=== PATIENT | female | born 1995 | race Two or more races ===

== ENCOUNTER 2020-04-19 01:03 | Inpatient (IN) | payer OTHER ==
[~2020-04-19] VITALS: Ht 170.2 cm; Wt 78.0 kg
[2020-04-19] VITALS (13 sets, daily range): BP systolic 91–119; BP diastolic 50–68
--- NOTE | 2020-04-19 03:10 | NUR ---
NURSE NOTES: Received report from Tawana DUCKWORTH at [facility]. The patient was brought in by 2 online marketing analyst from [facility] ambulance via a gurney.She is alert and oriented x4 and does not seem to be in any acute distress at this time.She was admitted due to acute appendicitis. She is on room air with Resp even and unlabored and the bilateral lung sounds clear on auscultation. She was able to ambulate to the bathroom with a steady gait. She has a Right AC 20g that is patent and asymptomatics. Skin is warm and soft with with capillary refills <3 seconds. The is no evidence of a pressure sore and the skin is clear and intact. The bed in low and locked level and the call light within easy reach with side rails up x2.Will continue to monitor as indicated.
--- NOTE | 2020-04-19 03:30 | NUR ---
NURSE NOTES: All admission orders received from Dr. Moseley and executed as indicated. will continue to monitor
[2020-04-19] MEDS ORDERED: Morphine Sulfate 2mg/ml Inj(IV/IM USE ONLY) IVP PRN ×4 (04:45→12:45)
[2020-04-19] MEDS: D5 1/2NS w/KCl 20mEq 1,000 ML IV SCH ×2 (05:16→15:00)
[2020-04-19 05:26] LABS: BASOPHILS % (AUTO) 0.8 % (0.0-2.0); HEMATOCRIT 36.2 % (37.0-47.0); HEMOGLOBIN 12.4 G/DL (12.0-16.0); LYMPHOCYTES % (AUTO) 5.5 % (20.0-45.0); MEAN CORPUSCULAR VOLUME 85 FL (80-99); MONOCYTES % (AUTO) 9.5 % (1.0-10.0); NEUTROPHILS % (AUTO) 84.1 % (45.0-75.0); PLATELET COUNT 164 K/UL (150-450); RED BLOOD COUNT 4.27 M/UL (4.20-5.40); RED CELL DISTRIBUTION WIDTH 11.7 % (11.6-14.8); WHITE BLOOD COUNT 9.5 K/UL (4.8-10.8)
[2020-04-19 05:47] LABS: ALANINE AMINOTRANSFERASE 11 U/L (12-78); ALBUMIN 3.3 G/DL (3.4-5.0); ALBUMIN/GLOBULIN RATIO 1.3 (1.0-2.7); ALKALINE PHOSPHATASE 70 U/L (46-116); ASPARTATE AMINO TRANSFERASE 15 U/L (15-37); BILIRUBIN,TOTAL 0.4 MG/DL (0.2-1.0); BLOOD UREA NITROGEN 9 mg/dL (7-18); CALCIUM 8.2 MG/DL (8.5-10.1); CHLORIDE 108 MMOL/L (98-107); CREATININE 0.8 MG/DL (0.55-1.30); PHOSPHORUS 3.6 MG/DL (2.5-4.9); POTASSIUM 3.9 MMOL/L (3.5-5.1); SODIUM 142 MMOL/L (136-145)
[2020-04-19] MEDS: Piperacillin/Tazobactam 3.375 GM in NS 110 ML IVPB SCH ×3 (06:03→22:13)
[2020-04-19 06:07] LABS: CARBON DIOXIDE 24 MMOL/L (21-32)
[2020-04-19 07:18] LABS: APPEARANCE,URINE CLEAR; BILIRUBIN, URINE NEGATIVE (NEGATIVE); COLOR,URINE PALE YELLOW; GLUCOSE, URINE (UA) NEGATIVE (NEGATIVE); KETONES,URINE 3+ (NEGATIVE); LEUKOCYTE ESTERASE ,URINE 1+ (NEGATIVE); NITRITE,URINE NEGATIVE (NEGATIVE); PH,URINE 5 (4.5-8.0); PROTEIN,URINE 1+ (NEGATIVE); UROBILINOGEN,URINE NORMAL MG/DL (0.0-1.0)
--- NOTE | 2020-04-19 07:21 | NUR ---
HAND-OFF: Report given to Ina DUCKWORTH.
--- NOTE | 2020-04-19 08:55 | NUR ---
RADIOLOGY DEPT., CHEST X-RAY COMPLETED.-P.DYE
[2020-04-19] MEDS ORDERED: Tubing IV Secondary IV ONE (09:19)
--- NOTE | 2020-04-19 09:22 | Diagnostic Imaging Report ---
EXAM: XR Chest, 1 View CLINICAL HISTORY: PREOP TECHNIQUE: Frontal view of the chest. COMPARISON: No relevant prior studies available. FINDINGS/IMPRESSION: There is no focal consolidation, pleural effusion, or pneumothorax. Cardiomegaly, out of proportion for the patient's age.
[2020-04-19] MEDS ORDERED: SYNTHROID112 MCG ORAL (09:46)
[2020-04-19] MEDS ORDERED: HYDROXYCHLOROQ200 M1 PO (09:46)
[2020-04-19] MEDS ORDERED: LEVOTHYROXINE125 MCG ORAL (09:46)
[2020-04-19] MEDS ORDERED: ZOLOFT25 MG ORAL (09:46)
[2020-04-19] MEDS ORDERED: MELOXICAM15 MG PO (09:46)
--- NOTE | 2020-04-19 10:59 | Anethesia Preoperative Eval ---
Anesthesia Pre-op PMH/ROS General Date of Evaluation: Apr 19, 2020 Time of Evaluation: 10:58 Anesthesiologist: Luz Elena ASA Score: ASA 2 Mallampati Score Class I : Soft palate, uvula, fauces, pillars visible Class II: Soft palate, uvula, fauces visible Class III: Soft palate, base of uvula visible Class IV: Only hard plate visible Mallampati Classification: Class II Surgeon: Concepción Diagnosis: Acute appendicitis Surgical Procedure: Open appendectomy Anesthesia History: none Family History: no anesthesia problems Allergies: Coded Allergies: No Known Allergies (Unverified , 04/19/20) Medications: see eMAR Patient NPO?: Yes NPO Date: Apr 19, 2020 Past Medical History Cardiovascular: Denies: HTN, CAD, NM, valve dz, arrhythmia, other Pulmonary: Denies: asthma, COPD, GLORY, other Gastrointestinal/Genitourinary: Denies: GERD, CRI, ESRD, other Neurologic/Psychiatric: Reports: depression/anxiety; Denies: dementia, CVA, TIA, other Endocrine: Reports: hypothyroidism; Denies: DM, steroids, other HEENT: Denies: cataract (L), cataract (R), glaucoma, [place] (L), [place] (R), other Musculoskeletal/Integumentary: Denies: OA, RA, DJD, DDD, edema, other Anesthesia Pre-op Phys. Exam Physician Exam Last Vital Signs Date Time Temp Pulse Resp B/P (MAP) Pulse Ox O2 Delivery O2 Flow Rate FiO2 04/19/20 08:57 Room Air 04/19/20 08:00 98.7 70 17 114/68 (83) 99 Constitutional: NAD Neurologic: CN 2-12 intact Cardiovascular: RRR Respiratory: CTA Gastrointestinal: S/NT/ND Airway Exam Mallampati Score: Class II MO: full ROM: full Dentures: no upper, no lower Anesthesia Pre-op A/P Labs Hematology Test 04/19/20 04:50 White Blood Count 9.5 K/UL (4.8-10.8) Red Blood Count 4.27 M/UL (4.20-5.40) Hemoglobin 12.4 G/DL (12.0-16.0) Hematocrit 36.2 % (37.0-47.0) L Mean Corpuscular Volume 85 FL (80-99) Mean Corpuscular Hemoglobin 29.0 PG (27.0-31.0) Mean Corpuscular Hemoglobin Concent 34.3 G/DL (32.0-36.0) Red Cell Distribution Width 11.7 % (11.6-14.8) Platelet Count 164 K/UL (150-450) Mean Platelet Volume 8.5 FL (6.5-10.1) Neutrophils (%) (Auto) 84.1 % (45.0-75.0) H Lymphocytes (%) (Auto) 5.5 % (20.0-45.0) L Monocytes (%) (Auto) 9.5 % (1.0-10.0) Eosinophils (%) (Auto) 0.0 % (0.0-3.0) Basophils (%) (Auto) 0.8 % (0.0-2.0) Coagulation Test 04/19/20 04:50 Prothrombin Time 11.4 SEC (9.30-11.50) Prothromb Time International Ratio 1.0 (0.9-1.1) Activated Partial Thromboplast Time 27 SEC (23-33) Chemistry Test 04/19/20 04:50 Sodium Level 142 MMOL/L (136-145) Potassium Level 3.9 MMOL/L (3.5-5.1) Chloride Level 108 MMOL/L (98-107) H Carbon Dioxide Level 24 MMOL/L (21-32) Blood Urea Nitrogen 9 mg/dL (7-18) Creatinine 0.8 MG/DL (0.55-1.30) Estimat Glomerular Filtration Rate > 60 mL/min (>60) Glucose Level 112 MG/DL (74-106) H Calcium Level 8.2 MG/DL (8.5-10.1) L Phosphorus Level 3.6 MG/DL (2.5-4.9) Magnesium Level 2.0 MG/DL (1.8-2.4) Total Bilirubin 0.4 MG/DL (0.2-1.0) Aspartate Amino Transf (AST/SGOT) 15 U/L (15-37) Alanine Aminotransferase (ALT/SGPT) 11 U/L (12-78) L Alkaline Phosphatase 70 U/L (46-116) Total Protein 5.9 G/DL (6.4-8.2) L Albumin 3.3 G/DL (3.4-5.0) L Globulin 2.6 g/dL Albumin/Globulin Ratio 1.3 (1.0-2.7) Urine Test Test 04/19/20 10:16 Urine HCG, Qualitative Negative (NEGATIVE) Studies Pre-op Studies: EKG Risk Assessment & Plan Assessment: covid neg Plan: General Status Change Before Surgery: No Pre-Antibiotics Drug: none Vannesa Laguna CRNA Apr 19, 2020 10:59
[2020-04-19] MEDS ORDERED: Hydromorphone 0.5mg/0.5ml inj IVP PRN (11:00)
[2020-04-19] MEDS ORDERED: Metoclopramide 10mg/2ml Inj IVP PRN (11:00)
[2020-04-19] MEDS ORDERED: DiphenhydrAMINE 50mg/ml Inj IVP PRN (11:00)
[2020-04-19] MEDS ORDERED: fentaNYL 100 mcg/2 mL IV PRN (11:00)
[2020-04-19] MEDS ORDERED: Bacitracin 50000 Units Vial ONE (11:02)
[2020-04-19] MEDS ORDERED: Lidocaine 1% 10mg/ml/Epi 0.005mg/ml 30ml vial INJ ONE (11:02)
[2020-04-19] MEDS ORDERED: NeoSporin Gu Irrig 1ml Amp IRRIG ONE (11:03)
--- NOTE | 2020-04-19 11:06 | Pre-Procedure Note/Attestation ---
Pre-Procedure Note/Attestation Complete Prior to Procedure Procedure Narrative: laparoscopic appendectomy possible open Indications for Procedure Pre-Operative Diagnosis: acute appendicitis Attestation I attest that I discussed the nature of the procedure; its benefits; risks and complications; and alternatives (and the risks and benefits of such alternatives), prior to the procedure, with the patient (or the patient's legal member services representative). I attest that, if there was a reasonable possibility of needing a blood transfusion, the patient (or the patient's legal member services representative) was given the [facility] standardized written summary, pursuant to the Ayaz Vicky Blood Safety Act ([place] Health and Safety Code # 1645, as amended). I attest that I re-evaluated the patient just prior to the surgery and that there has been no change in the patient's H&P, except as documented below: Jose C Beebe Apr 19, 2020 11:06
--- NOTE | 2020-04-19 11:09 | Consultation ---
History of Present Illness General Date patient seen: Apr 19, 2020 Present Illness HPI This is a very pleasant 25-year-old female with history of Pari's, hypothyroidism, rheumatoid arthritis that presented to [facility] with complaints of acute onset abdominal pain. Patient states that she was at home doing well and began to feel uncomfortable. Try to eat had episode of nausea followed by emesis after eating a bagel. Then began to have generalized abdominal discomfort. By the time she was at [place] she had periumbilical pain radiating to the right lower quadrant. At [facility] had a CT scan and identified to have acute uncomplicated appendicitis transferred to [facility] for insurance reasons. Surgery called to evaluate and assist with care patient seen, patient evaluated, chart reviewed. States pain mainly in the periumbilical right lower quadrant right now. Has been on antibiotics and pain medication feels little bit more comfortable but states worse when she tries to get up and move. Currently no nausea vomiting fever chills. Allergies: Coded Allergies: No Known Allergies (Unverified , 04/19/20) COVID-19 Screening Contact w/high risk pt: No Experienced COVID-19 symptoms?: No Medication History Scheduled Hydroxychloroquine Sulfate (Hydroxychloroquine Sulfate), 200 MG PO EVERY 12 HOURS, (Reported) Levothyroxine Sodium* (Levothyroxine Sodium*), 125 MCG ORAL DAILY, (Reported) Levothyroxine Sodium* (Synthroid*), 112 MCG ORAL DAILY, (Reported) Meloxicam* (Meloxicam*), 15 MG PO DAILY, (Reported) Sertraline Hcl* (Zoloft*), 25 MG ORAL DAILY, (Reported) Patient History History Provided By: Patient Healthcare decision maker Resuscitation status Advanced Directive on File Past Medical/Surgical History Past Medical/Surgical History: (1) Acute appendicitis Review of Systems Review of Symptoms General ROS: no weight loss or fever Psychological ROS: no depression or mood changes, no memory loss Ophthalmic ROS: no visual changes or eye irritation ENT ROS: no nasal congestion, hearing loss, dizziness Allergy and Immunology ROS: no allergic symptoms or urticaria Hematological and Lymphatic ROS: no swollen glands, unusual bleeding or bruising Endocrine ROS: no polyuria, polydipsia, weight changes, temperature intolerance Respiratory ROS: no cough, shortness of breath, or wheezing Cardiovascular ROS: no chest pain or dyspnea on exertion Gastrointestinal ROS: ++ abdominal pain, --bright red blood in stool. Musculoskeletal ROS: no myalgias or arthralgias Neurological ROS: no TIA or stroke symptoms Dermatological ROS: no new or changing skin lesions, rashes or pruritis Physical Exam Physical Exam General appearance: alert, cooperative, no distress, appears stated age Head: Normocephalic, without obvious abnormality, atraumatic Eyes: conjunctivae/corneas clear. PERRL, EOM's intact. Fundi benign Throat: Lips, mucosa, and tongue normal. Teeth and gums normal Neck: supple, symmetrical, trachea midline, no adenopathy, thyroid: not enlarged, symmetric, no tenderness/mass/nodules, no carotid bruit and no JVD Lungs: clear to auscultation bilaterally Heart: regular rate and rhythm, S1, S2 normal, no murmur, click, rub or gallop Abdomen: soft, right lower quadrant-tender. Bowel sounds normal. No masses, no organomegaly Extremities: extremities normal, atraumatic, no cyanosis or edema Pulses: 2+ and symmetric Skin: Skin color, texture, turgor normal. No rashes or lesions Neurologic: Grossly normal Last 24 Hour Vital Signs Date Time Temp Pulse Resp B/P (MAP) Pulse Ox O2 Delivery O2 Flow Rate FiO2 04/19/20 08:57 Room Air 04/19/20 08:00 98.7 70 17 114/68 (83) 99 04/19/20 04:00 98.4 73 17 115/66 (82) 96 04/19/20 03:53 Room Air Laboratory Tests Test 04/19/20 04:50 04/19/20 06:00 04/19/20 10:16 White Blood Count 9.5 K/UL (4.8-10.8) Red Blood Count 4.27 M/UL (4.20-5.40) Hemoglobin 12.4 G/DL (12.0-16.0) Hematocrit 36.2 % (37.0-47.0) L Mean Corpuscular Volume 85 FL (80-99) Mean Corpuscular Hemoglobin 29.0 PG (27.0-31.0) Mean Corpuscular Hemoglobin Concent 34.3 G/DL (32.0-36.0) Red Cell Distribution Width 11.7 % (11.6-14.8) Platelet Count 164 K/UL (150-450) Mean Platelet Volume 8.5 FL (6.5-10.1) Neutrophils (%) (Auto) 84.1 % (45.0-75.0) H Lymphocytes (%) (Auto) 5.5 % (20.0-45.0) L Monocytes (%) (Auto) 9.5 % (1.0-10.0) Eosinophils (%) (Auto) 0.0 % (0.0-3.0) Basophils (%) (Auto) 0.8 % (0.0-2.0) Prothrombin Time 11.4 SEC (9.30-11.50) Prothromb Time International Ratio 1.0 (0.9-1.1) Activated Partial Thromboplast Time 27 SEC (23-33) Sodium Level 142 MMOL/L (136-145) Potassium Level 3.9 MMOL/L (3.5-5.1) Chloride Level 108 MMOL/L (98-107) H Carbon Dioxide Level 24 MMOL/L (21-32) Blood Urea Nitrogen 9 mg/dL (7-18) Creatinine 0.8 MG/DL (0.55-1.30) Estimat Glomerular Filtration Rate > 60 mL/min (>60) Glucose Level 112 MG/DL (74-106) H Calcium Level 8.2 MG/DL (8.5-10.1) L Phosphorus Level 3.6 MG/DL (2.5-4.9) Magnesium Level 2.0 MG/DL (1.8-2.4) Total Bilirubin 0.4 MG/DL (0.2-1.0) Aspartate Amino Transf (AST/SGOT) 15 U/L (15-37) Alanine Aminotransferase (ALT/SGPT) 11 U/L (12-78) L Alkaline Phosphatase 70 U/L (46-116) Total Protein 5.9 G/DL (6.4-8.2) L Albumin 3.3 G/DL (3.4-5.0) L Globulin 2.6 g/dL Albumin/Globulin Ratio 1.3 (1.0-2.7) Urine Color Pale yellow Urine Appearance Clear Urine pH 5 (4.5-8.0) Urine Specific Fa[place]ner 1.025 (1.005-1.035) Urine Protein 1+ (NEGATIVE) H Urine Glucose (UA) Negative (NEGATIVE) Urine Ketones 3+ (NEGATIVE) H Urine Blood Negative (NEGATIVE) Urine Nitrite Negative (NEGATIVE) Urine Bilirubin Negative (NEGATIVE) Urine Urobilinogen Normal MG/DL (0.0-1.0) Urine Leukocyte Esterase 1+ (NEGATIVE) H Urine RBC 0-2 /HPF (0 - 2) Urine WBC 2-4 /HPF (0 - 2) Urine Squamous Epithelial Cells Few /LPF (NONE/OCC) Urine Bacteria Few /HPF (NONE) Urine HCG, Qualitative Negative (NEGATIVE) Height (Feet): 5 Height (Inches): 7.00 Weight (Pounds): 81 Medications Current Medications Medications (Trade) Dose Ordered Sig/Luana Route PRN Reason Start Time Stop Time Status Last Admin Dose Admin Acetaminophen (Tylenol) 650 mg Q6H PRN ORAL Mild Pain (Pain Scale 1-3) 04/19/20 04:45 05/19/20 04:44 Dextrose/ Electrolytes 1,000 ml @ 100 mls/hr Q10H IV 04/19/20 05:00 05/19/20 04:59 04/19/20 05:16 Diphenhydramine HCl (Benadryl) 25 mg Q15M PRN IVP Itching 04/19/20 11:00 04/19/20 17:00 Fentanyl Citrate (Sublimaze 100 mcg/2 mL) 25 mcg Q10M PRN IV Moderate Pain (Pain Scale 4-6) 04/19/20 11:00 04/19/20 17:00 Hydromorphone HCl (Dilaudid) 0.5 mg Q15M PRN IVP Severe Pain (Pain Scale 7-10) 04/19/20 11:00 04/19/20 17:00 Metoclopramide HCl (Reglan) 10 mg Q1H PRN IVP Nausea & Vomiting 04/19/20 11:00 04/19/20 17:00 Morphine Sulfate (Morphine Sulfate) 2 mg Q3H PRN IVP Moderate Pain (Pain Scale 4-6) 04/19/20 08:15 04/26/20 08:14 Morphine Sulfate (Morphine Sulfate) 4 mg Q3H PRN IVP Severe Pain (Pain Scale 7-10) 04/19/20 08:15 04/26/20 08:14 Ondansetron HCl (Zofran) 4 mg Q1H PRN IVP Nausea & Vomiting 10/17/20 11:00 04/19/20 17:00 Ondansetron HCl (Zofran) 4 mg Q4H PRN IVP Nausea & Vomiting 04/19/20 08:15 05/19/20 08:14 04/19/20 08:53 Piperacillin Sod/ Tazobactam Sod 3.375 gm/Sodium Chloride 110 ml @ 27.5 mls/hr Q8HR IVPB 04/19/20 06:00 04/26/20 05:59 04/19/20 06:03 Assessment/Plan Problem List: (1) Acute appendicitis Assessment & Plan: 25-year-old female with acute appendicitis uncomplicated. Afebrile, hemodynamic stable, labs okay. CT scan consistent with acute uncomplicated appendicitis. Physical exam with focal right lower quadrant tenderness. 2 OR for laparoscopic appendectomy N.p.o. IV fluids IV antibiotics Consent Thank you will follow with recommendations ICD Codes: K35.80 - Unspecified acute appendicitis SNOMED: [id number] Jose C Beebe Apr 19, 2020 11:09
[2020-04-19] MEDS ORDERED: fentaNYL 100 mcg/2 mL IV ONE ×2 (11:15→12:46)
[2020-04-19] MEDS ORDERED: Midazolam 2mg/2ml Inj ONE (11:15)
[2020-04-19] MEDS ORDERED: Rocuronium Bromide 50mg/5ml Inj IV ONE (11:18)
--- NOTE | 2020-04-19 11:25 | NUR ---
NURSE NOTES: Patient off unit for surgery in stable condition. IV patent.
[2020-04-19] MEDS ORDERED: NS Irrig 1000ml ONE (11:30)
[2020-04-19] MEDS ORDERED: LR 1000ml ONE (11:30)
[2020-04-19] MEDS ORDERED: Sterile Water Irrig 1000ml IRRIG ONE (11:30)
[2020-04-19] MEDS ORDERED: Lidocaine 1% MPF 10mg/ml 5ml ONE (12:05)
[2020-04-19] MEDS ORDERED: Metoclopramide 10mg/2ml Inj ONE (12:05)
[2020-04-19] MEDS ORDERED: Glycopyrrolate 0.2mg/ml 1ml Vial ONE (12:39)
[2020-04-19] MEDS ORDERED: Ketorolac 30mg Inj ONE (12:39)
[2020-04-19] MEDS ORDERED: Neostigmine 1mg/ml 10ml Inj ONE (12:39)
--- NOTE | 2020-04-19 12:44 | Brief Operative Note ---
Immediate Post Operative Note Operative Note Pre-op Diagnosis: acute appendicitis Procedure: lap appy Post-op Diagnosis: same as pre-op Surgeon: manav Anesthesiologist: oli Anesthesia: general, local Specimen: yes Complications: none Condition: stable Fluids: see Estimated Blood Loss: minimal Drains: none Implant(s) used?: No Jose C Beebe Apr 19, 2020 12:44
[2020-04-19] MEDS ORDERED: Sennosides 8.6mg tab ORAL PRN (12:45)
[2020-04-19] MEDS ORDERED: Milk of Magnesia 30ml Ud ORAL PRN (12:45)
[2020-04-19] MEDS ORDERED: Ketorolac 30mg Inj IV PRN (12:45)
--- NOTE | 2020-04-19 12:57 | Immediate Post-Op Evaluation ---
Immediate Post-Op Evalulation Immediate Post-Op Evalulation Procedure: Henrique Hawkinsy Date of Evaluation: Apr 19, 2020 Time of Evaluation: 12:56 IV Fluids: 750 Blood Pressure Systolic: 90 Blood Pressure Diastolic: 40 Pulse Rate: 80 Respiratory Rate: 14 O2 Sat by Pulse Oximetry: 99 Temperature (Fahrenheit): 97.6 Nausea: No Vomiting: No Complications none Patient Status: awake, reacts, patent Hydration Status: adequate Drug: none Vannesa Laguna CRNA Apr 19, 2020 12:57
--- NOTE | 2020-04-19 13:08 | 48 Hour Post Anesthesia Eval ---
Post Anesthesia Evaluation Procedure: Lap Appy Date of Evaluation: Apr 19, 2020 Time of Evaluation: 13:07 Blood Pressure Systolic: 114 0: 68 Pulse Rate: 70 Respiratory Rate: 14 O2 Sat by Pulse Oximetry: 99 Airway: patent Nausea: No Vomiting: No Hydration Status: adequate Cardiopulmonary Status: stable Mental Status/LOC: patient returned to baseline Post-Anesthesia Complications: none Follow-up care needed: N/A Vannesa Laguna CRNA Apr 19, 2020 13:08
--- NOTE | 2020-04-19 13:45 | Operative Note - Dictated ---
DATE OF OPERATION: 04/19/2020 PREOPERATIVE DIAGNOSIS: Acute appendicitis. POSTOPERATIVE DIAGNOSIS: Acute appendicitis. OPERATION PERFORMED: Laparoscopic appendectomy. ATTENDING SURGEON: Jose C Beebe MD. WEED CONTROLLER: None. ANESTHESIOLOGIST: Vannesa Laguna CRNA. ANESTHESIA: General RN PALLIATIVE plus local. ESTIMATED BLOOD LOSS: Minimal. IV FLUIDS: Please see anesthesia records. COMPLICATIONS: None. DRAINS: None. COUNTS: Sponge and needle count correct x2. WOUND CLASSIFICATION: Class 3. SPECIMENS: Appendix. ANTIBIOTICS: The patient is on scheduled IV Zosyn. INDICATIONS FOR PROCEDURE: This is a 25-year-old female who presented to the outside [facility] with acute abdominal pain, identified on CT scan to have acute appendicitis, noncomplicated, transferred to [facility] for insurance reasons at which time I was called and saw the patient immediately and identified and agreed with above findings. The patient's history, physical exam, and radiological evaluation is consistent with acute appendicitis. Focal right lower quadrant tenderness with rebound and guarding. Surgery was indicated and recommended. Risks, benefits, and alternatives discussed with the patient in detail and consent was obtained. OPERATIVE NOTE: The patient was taken to the operating room and placed on the operating table in supine position with right arm out, left arm tucked. All bony prominences were well padded. SCDs placed. Preoperative time-out taken identifying the patient, procedure, operative staff, and surgical staff. General anesthesia was induced, the patient was intubated. The abdomen was clipped, prepped, and draped in standard surgical fashion. An infraumbilical incision was made and carried down through the subcutaneous tissue to the fascia. Fascia was elevated and incised and entry into the abdomen was obtained using open Paras technique without complication. A 12 mm Paras trocar was inserted and the abdomen was insufflated to 12 to 15 mmHg. Laparoscope was inserted and the abdomen was inspected. No injury from initial trocar placement identified. Liver and, gallbladder were otherwise normal. Stomach portions that could be identified were otherwise normal. Small intestines otherwise without event. In the right lower quadrant, there was a right inguinal hernia identified, indirect small, in the left lower quadrant. No hernia was identified. In the pelvis, the uterus was noted. An enlarged right ovary was identified with some surrounding inflammatory tissue, potentially cystic in nature. Left ovary was otherwise within normal limits. The appendix was identified in the right lower quadrant, inflamed and retrocecal. Pictures were taken for the patient and in the chart. Secondary trocars were placed under direct visualization beginning with a left lower quadrant 12 mm followed by 5 mm suprapubic. No injury from secondary trocar placement identified. The cecum was identified and followed tenia down to the base where the base of the appendix was noted. A window was made between the base of the appendix and the cecum. A laparoscopic linear stapler was used and the appendix was divided without complication. Laparoscopic clips were used for hemostasis as necessary throughout the procedure from staple lines. The appendix then gently dissected out from the retrocecal and the mesoappendix identified. Mesoappendix was divided using a laparoscopic linear stapler vascular load. Again, clips used for staple line, hemostasis necessary. Appendix was placed in an endoscopic retrieval bag and removed from the abdomen using left lower quadrant port site without complication. The appendix is not perforated. The right lower quadrant and pelvis were mildly irrigated and suctioned out with antibiotic solution. In the pelvis, again, the right ovary was identified with some inflammatory tissue unrelated to the appendix. At this time, we began the conclusion of our procedure. Secondary trocars were removed under direct visualization followed by umbilical trocar site. Umbilical trocar site fascia and left lower quadrant port site fascia reapproximated using [id number] #0 Vicryl suture. Skin incisions were reapproximated using 4-0 Monocryl subcutaneous interrupted sutures. Skin glue and Steri-Strips were applied. The patient tolerated the procedure well, was extubated and taken to postanesthetic care unit in stable condition. Jose C Beebe M.D. DR: DIEGO JOB#: [id number] CC:
--- NOTE | 2020-04-19 13:50 | NUR ---
NURSE NOTES: pt arrived back to the floor via hospital bed s/p surgery , a/ox4, breaths regular unlabored on RA, c/p pain 08/13,, received report from Jackie DUCKWORTH vitals checked and wnl Will continue to monitor
--- NOTE | 2020-04-19 15:44 | History & Physical ---
History and Physical History & Physicial [id number] Jesu Gates MD Apr 19, 2020 15:44
--- NOTE | 2020-04-19 17:00 | History and Physical Report ---
DATE OF ADMISSION: 04/19/2020 CHIEF COMPLAINT: The patient is a 25-year-old female who presents with a chief complaint of right lower quadrant pain. HISTORY OF PRESENT ILLNESS: The patient has a history of Pari disease and hypothyroidism. The patient began to experience right lower quadrant pain two days prior to admission. The pain got increasingly worse. The patient initially presented to [facility]. The patient was diagnosed with acute appendicitis with CAT scan. The patient is transferred to [facility] for insurance purposes. The patient is admitted with right lower quadrant pain and acute appendicitis. REVIEW OF SYSTEMS: CONSTITUTIONAL: The patient denies weight loss or gain. The patient denies fevers or chills. HEENT: The patient denies ear or throat pain. The patient denies headache. CARDIOVASCULAR: The patient denies palpitations or chest pain. CHEST: The patient denies wheeze or shortness of breath. ABDOMEN: The patient complains of right lower quadrant pain as above. The patient complains of nausea. The patient denies vomiting, diarrhea, or constipation. GENITOURINARY: The patient denies dysuria or increased frequency of urination. NEUROMUSCULAR: The patient denies seizures. PAST MEDICAL HISTORY: Significant for: 1. Pari disease. 2. Hypothyroidism. PAST SURGICAL HISTORY: The patient denies. CURRENT MEDICATIONS: 1. Hydroxychloroquine 200 mg 1 tablet p.o. twice daily. 2. Levothyroxine 0.125 mg p.o. daily. 3. Meloxicam 15 mg p.o. daily. 4. Sertraline 25 mg p.o. daily. ALLERGIES: No known drug allergies. SOCIAL HISTORY: The patient is single. The patient denies tobacco or alcohol use. PHYSICAL EXAMINATION: VITAL SIGNS: Temperature 98.4, respirations 17, pulse 73, blood pressure 115/66. GENERAL: The patient is a well-developed, well-nourished female, in no apparent distress. HEENT: Eyes, pupils equal and responsive to light and accommodation. Extraocular movements are intact. NECK: Supple without lymphadenopathy. CHEST: Lungs are clear to auscultation bilaterally without wheezes or rales. CARDIOVASCULAR: Regular rate. S1, S2 are normal without murmurs, rubs, or gallops. ABDOMEN: Soft, nondistended with decreased bowel sounds. There is tenderness to palpation in the right lower quadrant. There is no rebound or guarding. EXTREMITIES: Negative for clubbing, cyanosis, or edema. RECTAL/GENITALIA: Not performed. NEUROLOGIC: Cranial nerves II to XII grossly intact without focal deficits. Motor strength is 5/5 bilaterally. Deep tendon reflexes are 2+, plantar. LABORATORY STUDIES: WBC 9.5, hemoglobin 12.4, hematocrit 36.2, platelets 164,000. Sodium 142, potassium 3.9, chloride 108, CO2 24, BUN 0.8, glucose 112. Urinalysis showed 1+ protein, 3+ ketones, 1+ leukocyte esterase. ProTime 11.4, INR 1.0, PTT 27. A CT scan of the abdomen from [place] showed stranding about the appendix with thickened appendix wall consistent with acute appendicitis. ASSESSMENT: This is a 25-year-old female with: 1. Right lower quadrant pain. 2. Acute appendicitis. 3. Pari disease. 4. Hypothyroidism. TREATMENT: 1. Right lower quadrant pain/acute appendicitis. A general surgery consultation has been obtained with Dr. Jose C Beebe. The patient is scheduled for laparoscopic cholecystectomy today, April 19, 2020. 2. Pari disease/hypothyroidism. Continue Levoxyl as above. Jesu Gates M.D. DR: LILIYA JOB#: [id number] CC:
[2020-04-19] MEDS: Docusate 100mg cap ORAL SCH (17:25)
--- NOTE | 2020-04-19 19:35 | NUR ---
NURSE NOTES: received pt and report from shaheed DUCKWORTH. pt alert and oriented x4 in no acute distress and no co pain. iv site noted clean dry and intact. surtgical dressings clean dry and intact. plan of care discussed.
--- NOTE | 2020-04-19 19:42 | NUR ---
NURSE HAND-OFF: Important Events on Shift: s/p surgery Patient Status: stable Diet: regular Pending Orders: Pending Results/Labs: Pending MD notification: Latest Vital Signs: Temperature 98.6 , Pulse 70 , B/P 91 /51 , Respiratory Rate 16 , O2 SAT 100 , Nasal Cannula, O2 Flow Rate 3 . Vital Sign Comment: Latest Roth Fall Score: 20 Fall Risk: Low Risk Safety Measures: Call light Within Reach, Bed Alarm Zone 1, Side Rails Side Rails x2, Bed position Low and Locked. Fall Precautions: Patient Fall Education Report given to . Addendum: 04/19/20 at 1943 by Billy Menjivar RN Report given to Solomon DUCKWORTH
--- NOTE | 2020-04-19 19:52 | Cardiology Report ---
APPROVED REPORT EKG Measurement Heart [id number] <Conclusion> Normal sinus rhythm with sinus arrhythmia Septal infarct, age undetermined Abnormal ECG
[2020-04-19] MEDS: Morphine Sulfate 4mg/ml Inj (IV USE ONLY) IVP PRN (20:01)
[2020-04-20] VITALS: BP 106/58
[2020-04-20] MEDS: Morphine Sulfate 4mg/ml Inj (IV USE ONLY) IVP PRN ×3 (00:18→21:52)
[2020-04-20] MEDS: D5 1/2NS w/KCl 20mEq 1,000 ML IV SCH (01:00)
[2020-04-20 03:58] VITALS: BP 112/60
[2020-04-20] MEDS: Piperacillin/Tazobactam 3.375 GM in NS 110 ML IVPB SCH ×3 (05:17→21:53)
[2020-04-20 05:28] LABS: BASOPHILS % (AUTO) 0.8 % (0.0-2.0); EOSINOPHILS % (AUTO) 0.2 % (0.0-3.0); HEMATOCRIT 33.3 % (37.0-47.0); HEMOGLOBIN 11.2 G/DL (12.0-16.0); LYMPHOCYTES % (AUTO) 21.2 % (20.0-45.0); MEAN CORPUSCULAR VOLUME 85 FL (80-99); MONOCYTES % (AUTO) 8.9 % (1.0-10.0); NEUTROPHILS % (AUTO) 68.8 % (45.0-75.0); PLATELET COUNT 136 K/UL (150-450); RED BLOOD COUNT 3.91 M/UL (4.20-5.40); WHITE BLOOD COUNT 7.2 K/UL (4.8-10.8)
[2020-04-20 05:40] LABS: ANION GAP 6 mmol/L (5-15); BLOOD UREA NITROGEN 10 mg/dL (7-18); CALCIUM 7.9 MG/DL (8.5-10.1); CARBON DIOXIDE 25 MMOL/L (21-32); CHLORIDE 106 MMOL/L (98-107); CREATININE 0.8 MG/DL (0.55-1.30); POTASSIUM 3.4 MMOL/L (3.5-5.1); SODIUM 137 MMOL/L (136-145)
--- NOTE | 2020-04-20 07:29 | NUR ---
NURSE HAND-OFF: Important Events on Shift:pain management Patient Status: stable Diet: regular Pending Orders: NA Pending Results/Labs:NA Pending MD notification:NA Latest Vital Signs: Temperature 98.8 , Pulse 78 , B/P 112 /60 , Respiratory Rate 14 , O2 SAT 94 , Room Air, O2 Flow Rate 3 . Vital Sign Comment: stable through the shift Latest Roth Fall Score: 20 Fall Risk: Low Risk Safety Measures: Call light Within Reach, Bed Alarm Zone 1, Side Rails Side Rails x2, Bed position Low and Locked. Fall Precautions: Patient Fall Education Report given to Hany Saldaña RN.
--- NOTE | 2020-04-20 07:35 | NUR ---
NURSE NOTES: PT AXOX4, CALM, RESTING IN BED. PT STATES SHE HAS PAIN 4/10, GENERALIZE ABDOMINAL CRAMPING/ACHING. PT STATES SHE HS FLATUS BUT NO BOWEL MOVEMENT. 3 LAPAROSCOPIC SITES ARE DRY AND INTACT. NO EXUDATE/DRAINAGE NOTED. PT STATES SHE IS AMBULATING AND DOES NOT EXPERIENCE SOB/DIZZINESS. COSMO LIGHT WITHIN REACH. WILL CONTINUE TO MONITOR.
[2020-04-20 08:00] VITALS: BP 111/69
[2020-04-20] MEDS: Docusate 100mg cap ORAL SCH ×2 (08:56→17:10)
[2020-04-20 12:00] VITALS: BP 119/73
--- NOTE | 2020-04-20 14:38 | General Progress Note ---
Progress Note Progress Note surgery afebrile, HD stable recovering having abd pain. not ready for d/c pain management labs okay okay for diet activity as tolerated discussed OR findings, RIH and right ovary. will follow up with OB outpatient d/c plan tomorrow if pain controlled Jose C Beebe Apr 20, 2020 14:38
--- NOTE | 2020-04-20 15:21 | NUR ---
NURSE NOTES: PT AMBULATED INDEPENDENTLY THREE TIMES. PT TOLERATED WELL. DENIES SOB OR DIZZINESS WHEN AMBULATING. PT HAS NOT HAD A BOWEL MOVEMENT YET. BOWEL SOUNDS ARE HYPOACTIVE. DENIES N/V. WILL CONTINUE TO MONITOR.
[2020-04-20 16:00] VITALS: BP 102/57
--- NOTE | 2020-04-20 16:03 | Internal Med Progress Note ---
Subjective Date of Service: Apr 20, 2020 Physician Name Gates,Jesu Attending Physician Josh Moseley MD Current Medications Medications (Trade) Dose Ordered Sig/Luana Route PRN Reason Start Time Stop Time Status Last Admin Dose Admin Acetaminophen (Tylenol) 650 mg Q4H PRN ORAL FEVER 04/19/20 12:45 05/19/20 12:44 Acetaminophen (Tylenol) 650 mg Q6H PRN ORAL Mild Pain (Pain Scale 1-3) 04/19/20 12:45 05/19/20 12:44 Al Hydroxide/Mg Hydroxide (Mylanta) 15 ml Q6H PRN ORAL DYSPEPSIA 04/19/20 12:45 05/19/20 12:44 Diphenhydramine HCl (Benadryl) 25 mg Q8H PRN ORAL Itching/Pruritis 04/19/20 12:45 05/19/20 12:44 Docusate Sodium (Colace) 100 mg TWICE A DAY ORAL 04/19/20 18:00 05/19/20 17:59 04/20/20 08:56 Ketorolac Tromethamine (Toradol 30mg) 15 mg Q6H PRN IV breakthrough pain 04/19/20 12:45 04/24/20 12:44 Magnesium Hydroxide (Mom) 30 ml BIDPRN PRN ORAL Constipation 04/19/20 12:45 05/19/20 12:44 Morphine Sulfate (Morphine Sulfate) 1 mg Q4H PRN IVP pain scale 1-3 04/19/20 12:45 04/26/20 12:44 Morphine Sulfate (Morphine Sulfate) 2 mg Q3H PRN IVP Moderate Pain (Pain Scale 4-6) 04/19/20 08:15 04/26/20 08:14 Morphine Sulfate (Morphine Sulfate) 2 mg Q4H PRN IVP pain scale 4-6 04/19/20 12:45 04/26/20 12:44 04/20/20 14:07 Morphine Sulfate (Morphine Sulfate) 4 mg Q3H PRN IVP Severe Pain (Pain Scale 7-10) 04/19/20 08:15 04/26/20 08:14 04/20/20 08:59 Morphine Sulfate (Morphine Sulfate) 4 mg Q4H PRN IVP pain score 7-10 04/19/20 12:45 04/26/20 12:44 Ondansetron HCl (Zofran) 4 mg Q6H PRN IVP Nausea & Vomiting 04/19/20 12:45 05/19/20 12:44 04/20/20 08:58 Piperacillin Sod/ Tazobactam Sod 3.375 gm/Sodium Chloride 110 ml @ 27.5 mls/hr Q8HR IVPB 04/19/20 06:00 04/26/20 05:59 04/20/20 14:06 Sennosides (Senokot) 8.6 mg BIDPRN PRN ORAL Constipation 04/19/20 12:45 05/19/20 12:44 Temazepam (RestoriL) 7.5 mg DAILYPRN PRN ORAL Insomnia 04/19/20 12:45 04/26/20 12:44 Allergies: Coded Allergies: No Known Allergies (Unverified , 04/19/20) ROS Limited/Unobtainable: No Constitutional: Reports: no symptoms HEENT: Reports: no symptoms Cardiovascular: Reports: no symptoms Respiratory: Reports: no symptoms Gastrointestinal/Abdominal: Reports: abdominal pain Genitourinary: Reports: no symptoms Neurologic/Psychiatric: Reports: no symptoms Subjective 25 YO F admitted with right lower quadrant pain and acute appendicitis. S/O laparoscopic appendectomy 04/19/20. C/O post-op abdominal pain Objective Last Vital Signs Date Time Temp Pulse Resp B/P (MAP) Pulse Ox O2 Delivery O2 Flow Rate FiO2 04/20/20 12:00 98.6 74 18 119/73 (88) 96 04/20/20 09:00 Room Air 04/19/20 13:30 3 Laboratory Tests Test 04/20/20 04:35 White Blood Count 7.2 K/UL (4.8-10.8) Red Blood Count 3.91 M/UL (4.20-5.40) L Hemoglobin 11.2 G/DL (12.0-16.0) L Hematocrit 33.3 % (37.0-47.0) L Mean Corpuscular Volume 85 FL (80-99) Mean Corpuscular Hemoglobin 28.5 PG (27.0-31.0) Mean Corpuscular Hemoglobin Concent 33.5 G/DL (32.0-36.0) Red Cell Distribution Width 12.0 % (11.6-14.8) Platelet Count 136 K/UL (150-450) L Mean Platelet Volume 9.0 FL (6.5-10.1) Neutrophils (%) (Auto) 68.8 % (45.0-75.0) Lymphocytes (%) (Auto) 21.2 % (20.0-45.0) Monocytes (%) (Auto) 8.9 % (1.0-10.0) Eosinophils (%) (Auto) 0.2 % (0.0-3.0) Basophils (%) (Auto) 0.8 % (0.0-2.0) Sodium Level 137 MMOL/L (136-145) Potassium Level 3.4 MMOL/L (3.5-5.1) L Chloride Level 106 MMOL/L (98-107) Carbon Dioxide Level 25 MMOL/L (21-32) Anion Gap 6 mmol/L (5-15) Blood Urea Nitrogen 10 mg/dL (7-18) Creatinine 0.8 MG/DL (0.55-1.30) Estimat Glomerular Filtration Rate > 60 mL/min (>60) Glucose Level 93 MG/DL (74-106) Calcium Level 7.9 MG/DL (8.5-10.1) L Microbiology Date/Time Source Procedure Growth Status 04/19/20 06:00 Urine,Clean Catch Urine Culture - Preliminary NO GROWTH Resulted Intake and Output 04/19/20 04/20/20 19:00 07:00 Intake Total 550 ml 327.5 ml Balance 550 ml 327.5 ml Intake Oral 400 ml 300 ml IV Total 150 ml 27.5 ml # Voids 4 2 Objective PHYSICAL EXAMINATION: GENERAL: The patient is a well-developed, well-nourished female, in no apparent distress. HEENT: Eyes, pupils equal and responsive to light and accommodation. Extraocular movements are intact. NECK: Supple without lymphadenopathy. CHEST: Lungs are clear to auscultation bilaterally without wheezes or rales. CARDIOVASCULAR: Regular rate. S1, S2 are normal without murmurs, rubs, or gallops. ABDOMEN: Soft, nondistended with decreased bowel sounds. There is tenderness to palpation in the right lower quadrant. There is no rebound or guarding. EXTREMITIES: Negative for clubbing, cyanosis, or edema. RECTAL/GENITALIA: Not performed. NEUROLOGIC: Cranial nerves II to XII grossly intact without focal deficits. Motor strength is 5/5 bilaterally. Deep tendon reflexes are 2+, plantar. Assessment/Plan Assessment/Plan ASSESSMENT: This is a 25-year-old female with: 1. Right lower quadrant pain. 2. Acute appendicitis. 3. Pari disease. 4. Hypothyroidism. TREATMENT: 1. Right lower quadrant pain/acute appendicitis. surgery consultation=Dr. Jose C Beebe. The patient is S/P laparoscopic appendectomy April 19, 2020. tolerating regular diet 2. Pari disease/hypothyroidism. Continue Levoxyl as above. 3. Post-op pain Continue morphine IV Jesu Gates MD Apr 20, 2020 16:03
--- NOTE | 2020-04-20 19:58 | NUR ---
NURSE HAND-OFF: Important Events on Shift: NOT CLEARED FROM DR KINGSTON FOR DISCHARGE TODAY. PT'S MOTHER TO BRING IN HOME MEDICATION PLAQUENIL FOR RHEUMATOID ARTHRITIS. PT EDUCATED TO MAKE NURSE AWARE SO WE CAN DISPENSE MEDICATION THROUGH OUR PHARMACY. NO BOWEL MOVEMENT TODAY. FLATUS PRESENT. Patient Status: STABLE Diet: REGULAR Pending Orders: N/A Pending Results/Labs:N/A Pending MD notification:N/A Latest Vital Signs: Temperature 98.9 , Pulse 69 , B/P 102 /57 , Respiratory Rate 18 , O2 SAT 95 , Room Air, O2 Flow Rate 3 . Vital Sign Comment: STABLE Latest Roth Fall Score: 20 Fall Risk: Low Risk Safety Measures: Call light Within Reach, Bed Alarm Zone 1, Side Rails Side Rails x2, Bed position Low and Locked. Fall Precautions: Patient Fall Education Report given to Gisselle SUN LVN. .
[2020-04-20 20:00] VITALS: BP 106/60
--- NOTE | 2020-04-20 20:00 | NUR ---
NURSE NOTES: RECEIVED PATIENT LYING IN BED, AWAKE, ALERT/ORIENTED X4, VERBALLY RESPONSIVE, DENIES PAIN. S/P LAP APPY, ABDOMINAL DRESSINGS CLEAN, DRY AND INTACT X3. NO SIGNS AND SYMPTOMS OF ACUTE CARDIO RESPIRATORY DISTRESS/SHORTNESS OF BREATH, DENIES CHEST PAIN, NO PERIPHERAL EDEMA NOTED. IV INTACT TO LEFT FOREARM/GAUGE 22, NO SIGNS OF INFILTRATION, NO REDNESS/SWELLING NOTED. ABDOMEN SOFT/NON DISTENDED, NOTED WITH HYPOACTIVE BOWEL SOUNDS, PASSING GAS, NO BOWEL MOVEMENT. SIDE RAILS UP X2 FOR MOBILITY, BED IN LOWEST POSITION FOR SAFETY, REINFORCED IMPORTANCE OF CALLING FOR ASSISTANCE VIA CALL LIGHT, PATIENT VERBALIZED UNDERSTANDING. CONTINUE WITH CURRENT PLAN OF CARE. NAD.
--- NOTE | 2020-04-20 20:30 | NUR ---
NURSE NOTES: NOTED 6 BOTTLES OF MEDICATION BROUGHT IN BY PATIENT MOTHER AT BEDSIDE, EACH MEDICATION DOCUMENTED ON PHARMACY [facility] AND DELIVERED TO PHARMACY, PATIENT RECEIPT PROPERLY PLACED IN CHART.
[2020-04-21] VITALS: BP 109/59
[2020-04-21 04:00] VITALS: BP 114/63
[2020-04-21] MEDS: Piperacillin/Tazobactam 3.375 GM in NS 110 ML IVPB SCH (05:54)
[2020-04-21] MEDS: Morphine Sulfate 4mg/ml Inj (IV USE ONLY) IVP PRN (05:56)
[2020-04-21 06:31] LABS: EOSINOPHILS % (AUTO) 0.7 % (0.0-3.0); HEMATOCRIT 34.4 % (37.0-47.0); HEMOGLOBIN 11.7 G/DL (12.0-16.0); LYMPHOCYTES % (AUTO) 31.1 % (20.0-45.0); MEAN CORPUSCULAR VOLUME 86 FL (80-99); NEUTROPHILS % (AUTO) 55.2 % (45.0-75.0); PLATELET COUNT 164 K/UL (150-450); RED BLOOD COUNT 4.03 M/UL (4.20-5.40); RED CELL DISTRIBUTION WIDTH 11.9 % (11.6-14.8); WHITE BLOOD COUNT 4.6 K/UL (4.8-10.8)
[2020-04-21 06:34] LABS: ANION GAP 7 mmol/L (5-15); BLOOD UREA NITROGEN 7 mg/dL (7-18); CALCIUM 8.5 MG/DL (8.5-10.1); CARBON DIOXIDE 28 MMOL/L (21-32); CHLORIDE 106 MMOL/L (98-107); CREATININE 0.8 MG/DL (0.55-1.30); POTASSIUM 3.6 MMOL/L (3.5-5.1); SODIUM 141 MMOL/L (136-145)
--- NOTE | 2020-04-21 07:30 | NUR ---
NURSE NOTES: Patient is in bed awake and able to verbalize needs. Stable. Breathing is even and unlabored. No visible signs of distress noted. Patient instructed to use call light for assistance, verbalized understanding. Patient is in bed in locked and lowest position with call light within reach. All safety measures provided. WIll continue to monitor.
--- NOTE | 2020-04-21 07:38 | NUR ---
NURSE HAND-OFF: Important Events on Shift:[S/P LAP APPY, 3 SITES/SS INTACT, 2 SMALL BOWEL MOVEMENTS, NO DIARRHEA)] Patient Status: [AMBULATING IN ROOM, PAIN MANAGEMENT ONGOING] Diet: [REGULAR, NOTED WITH POOR APPETITE THIS MORNING, NO N/V/D] Pending Orders: [AM LABS] Pending Results/Labs:[] Pending MD notification:[] Latest Vital Signs: Temperature 98.7 , Pulse 59 , B/P 114 /63 , Respiratory Rate 18 , O2 SAT 99 , Room Air, O2 Flow Rate 3 . Vital Sign Comment: [STABLE, AFEBRILE] Latest Roth Fall Score: 20 Fall Risk: Low Risk Safety Measures: Call light Within Reach, Bed Alarm Zone 1, Side Rails Side Rails x2, Bed position Low and Locked. Fall Precautions: Patient Fall Education Report given to [ARELI].
[2020-04-21 08:00] VITALS: BP 103/58
[2020-04-21] MEDS: Docusate 100mg cap ORAL SCH (08:22)
[2020-04-21] MEDS ORDERED: Meloxicam 15 MG TAB ORAL SCH (09:00)
[2020-04-21] MEDS ORDERED: LR 1000ml ONE (11:30)
[2020-04-21] MEDS ORDERED: Sterile Water Irrig 1000ml IRRIG ONE (11:30)
[2020-04-21] MEDS ORDERED: NS Irrig 1000ml ONE (11:30)
[2020-04-21 12:00] VITALS: BP 135/95
[2020-04-21] MEDS: HYDROcodone/Acetamin 5/325 tab ORAL PRN ×2 (12:18→16:11)
[2020-04-21] MEDS ORDERED: ACETAMINOPHEN-1 EAC1 ORAL (12:35)
--- NOTE | 2020-04-21 12:37 | Pulmonology Progress Note ---
Subjective ROS Limited/Unobtainable: No Interval Events: got [place] for pain, doing better Allergies: Coded Allergies: No Known Allergies (Unverified , 04/19/20) Objective Last 24 Hour Vital Signs Date Time Temp Pulse Resp B/P (MAP) Pulse Ox O2 Delivery O2 Flow Rate FiO2 04/21/20 08:55 Room Air 04/21/20 08:00 97.9 72 18 103/58 (73) 100 04/21/20 06:26 98.7 04/21/20 04:00 98.7 59 18 114/63 (80) 99 04/21/20 00:00 98.2 18 109/59 (76) 95 04/20/20 21:00 Room Air 04/20/20 20:00 98.5 64 18 106/60 (75) 98 04/20/20 16:00 98.9 69 18 102/57 (72) 95 Intake and Output 04/20/20 04/21/20 19:00 07:00 Intake Total 965.0 ml 470.0 ml Balance 965.0 ml 470.0 ml Intake Oral 800 ml 360 ml IV Total 165.0 ml 110.0 ml # Voids 3 2 # Bowel Movements 2 General Appearance: WD/WN HEENT: normocephalic, atraumatic Respiratory: chest wall non-tender, lungs clear Breasts: no masses Cardiovascular: normal peripheral pulses, normal rate Abdomen: normal bowel sounds, soft, non tender Extremities: no cyanosis Skin: no rash Microbiology Date/Time Source Procedure Growth Status 04/19/20 06:00 Urine,Clean Catch Urine Culture - Preliminary NO GROWTH Resulted Laboratory Tests 04/21/20 05:05: White Blood Count 4.6L, Red Blood Count 4.03L, Hemoglobin 11.7L, Hematocrit 34.4L, Mean Corpuscular Volume 86, Mean Corpuscular Hemoglobin 29.0, Mean Corpuscular Hemoglobin Concent 33.9, Red Cell Distribution Width 11.9, Platelet Count 164, Mean Platelet Volume 8.1, Neutrophils (%) (Auto) 55.2, Lymphocytes (%) (Auto) 31.1, Monocytes (%) (Auto) 12.0H, Eosinophils (%) (Auto) 0.7, Basophils (%) (Auto) 1.0, Sodium Level 141, Potassium Level 3.6, Chloride Level 106, Carbon Dioxide Level 28, Anion Gap 7, Blood Urea Nitrogen 7, Creatinine 0.8, Estimat Glomerular Filtration Rate > 60, Glucose Level 81, Calcium Level 8.5 Current Medications Medications (Trade) Dose Ordered Sig/Luana Route PRN Reason Start Time Stop Time Status Last Admin Dose Admin Acetaminophen (Tylenol) 650 mg Q4H PRN ORAL FEVER 04/19/20 12:45 05/19/20 12:44 Acetaminophen (Tylenol) 650 mg Q6H PRN ORAL Mild Pain (Pain Scale 1-3) 04/19/20 12:45 05/19/20 12:44 Acetaminophen/ Hydrocodone Bitart ([place] 5/325) 1 tab Q4H PRN ORAL Moderate Pain (Pain Scale 4-6) 04/21/20 09:00 04/28/20 08:59 04/21/20 12:18 Al Hydroxide/Mg Hydroxide (Mylanta) 15 ml Q6H PRN ORAL DYSPEPSIA 04/19/20 12:45 05/19/20 12:44 Diphenhydramine HCl (Benadryl) 25 mg Q8H PRN ORAL Itching/Pruritis 04/19/20 12:45 05/19/20 12:44 Docusate Sodium (Colace) 100 mg TWICE A DAY ORAL 04/19/20 18:00 05/19/20 17:59 04/21/20 08:22 Hydroxychloroquine Sulfate (Plaquenil) 200 mg EVERY 12 HOURS ORAL 04/21/20 09:00 05/21/20 08:59 04/21/20 08:22 Ketorolac Tromethamine (Toradol 30mg) 15 mg Q6H PRN IV breakthrough pain 04/19/20 12:45 04/24/20 12:44 Levothyroxine Sodium (Synthroid) 112 mcg DAILY@0630 ORAL 04/21/20 06:30 05/21/20 06:29 04/21/20 05:55 Magnesium Hydroxide (Mom) 30 ml BIDPRN PRN ORAL Constipation 04/19/20 12:45 05/19/20 12:44 Meloxicam (Mobic) 15 mg DAILY ORAL 04/21/20 09:00 05/21/20 08:59 04/21/20 08:22 Morphine Sulfate (Morphine Sulfate) 1 mg Q4H PRN IVP pain scale 1-3 04/19/20 12:45 04/26/20 12:44 Morphine Sulfate (Morphine Sulfate) 2 mg Q4H PRN IVP pain scale 4-6 04/19/20 12:45 04/26/20 12:44 04/20/20 14:07 Morphine Sulfate (Morphine Sulfate) 4 mg Q4H PRN IVP pain score 7-10 04/19/20 12:45 04/26/20 12:44 04/21/20 05:56 Ondansetron HCl (Zofran) 4 mg Q6H PRN IVP Nausea & Vomiting 04/19/20 12:45 05/19/20 12:44 04/21/20 05:55 Quetiapine Fumarate (SEROqueL) 25 mg DAILY ORAL 04/20/20 16:30 05/20/20 16:29 Sennosides (Senokot) 8.6 mg BIDPRN PRN ORAL Constipation 04/19/20 12:45 05/19/20 12:44 Temazepam (RestoriL) 7.5 mg DAILYPRN PRN ORAL Insomnia 04/19/20 12:45 04/26/20 12:44 Assessment/Plan Problems: (1) Acute appendicitis Assessment/Plan improving on PO pain meds tolerating diet afebrile, no WBC cleared by surgeon for dc All medications and treatment were reviewed. discharge meds are done prescription for Tylenol #3 given. Maty Centeno MD Apr 21, 2020 12:37
--- NOTE | 2020-04-21 14:59 | NUR ---
CASE MANAGEMENT:INITIAL REVIEW 04/19/20 25 YR OLD FEMALE TRANSFERRED FROM [facility] D/T INSURANCE CC;RLQ PAIN X2 DAYS SI;ACUTE APPENDICITIS ~ TO SURGERY FOR LAP APPY 98.7 73 17 115/66 96% ON RA CL 108 BG 112 CA 8.2 ALB 3.3 UA+ PROTEIN, KETONES, LEUKOCYTE ESTERASE URINE CX ~ NEGATIVE CXR ~ There is no focal consolidation, pleural effusion, or pneumothorax. Cardiomegaly, out of proportion for the patient's age. IS;IVF D5W ZOSYN IV MORPHINE IV ZOFRAN IV CASE MANAGEMENT:REVIEW SI;POD #1 LAP APPY 99.1 74 18 102/57 95% ON RA H/H 11.2/33.3 K+ 3.4 IS;ZOFRAN IV MORPHINE SULFATE IV ZOSYN IV Q8 NORCO PO Q4 PRN MED SURG STATUS DCP;FROM HOME
--- NOTE | 2020-04-21 15:17 | NUR ---
INSURANCE CLINICALS AND REVIEWS FAXED TO [facility] P: [phone] F: [phone] REF#[id number]
[2020-04-21 16:00] VITALS: BP 120/83
[2020-04-21] MEDS ORDERED: Sertraline 50mg tab ORAL SCH (16:45)
--- NOTE | 2020-04-21 17:14 | NUR ---
NURSE NOTES: Patient discharged home as ordered. Stable. Patient was assessed by surgeon prior to discharge. Patient was given all discharge instructions and post op home care instructions by surgeon. All teaching reinforced by RN. Patient has prescription and stated that she will fill medication at home pharmacy. Patient's skin is c/d/i. No IV access. Patient assisted into private vehicle by RN without incident. Patient has all belongings.
--- NOTE | 2020-04-22 10:39 | Discharge Summary ---
Discharge Summary Discharge Summary _ DATE OF ADMISSION: 04/19/2020 DATE OF DISCHARGE: 04/21/2020 DISCHARGED BY: Dr. Moseley REASON FOR ADMISSION: 25 years old female with history of Pari thyroiditis, presented with right lower quadrant abdominal pain to [facility] emergency room . Pain started about 2 days prior , and was getting progressively worse. At [place] [facility] patient had CAT scan of the abdomen and pelvis , which revealed acute appendicitis. Patient subsequently was transferred to [facility] for insurance reasons. CONSULTANTS: critical care Dr. Centeno surgery Dr. Beebe [facility] COURSE: Patient admitted to medical surgical floor . Patient was kept n.p.o. Surgery consulted . Pain management was addressed. Patient subsequently undergone on 04/19 laparoscopic appendectomy Patient tolerated procedure well. Patient started on a liquid diet and was advanced as tolerated. Pain management was addressed and pain was controlled with oral analgesic. Patient was able to tolerate diet, ambulated, voided without difficulties, bowel regimen instituted. Patient clinically stabilized and was ready for discharge home. Prescription for analgesic provided . Patient to follow-up with a surgeon in the office as advised. FINAL DIAGNOSES: Acute appendicitis Status post laparoscopic appendectomy Pari thyroiditis DISCHARGE MEDICATIONS: See Medication Reconciliation list. DISCHARGE INSTRUCTIONS: Patient was discharged home. Follow-up with the surgeon in the office as advised. I have been assigned to dictate discharge summary for this account. I was not involved in the patient's management. Sunita Edward NP Apr 22, 2020 10:39
== END 2020-04-21 17:13 | disposition home or self-care (01) | DRG 343 ==
LOC: 3E 02:57
PROC: 0DTJ4ZZ Resection of Appendix, Percutaneous Endoscopic Approach (ICD-10-PCS; principal; 2020-04-19 11:30)
DX: K35.80 Unspecified acute appendicitis (principal); E06.3 Autoimmune thyroiditis; M06.9 Rheumatoid arthritis, unspecified
CPT/HCPCS: 36415; 71045; 80048; 80053; 81001; 81025; 83735; 84100; 85025; 85610; 85730; 86850; 86900; 86901; 86920; 87086; 93005; 94003; 94150; J2250; J2405; J2710; J2765

== ENCOUNTER → 2020-05-10 | Emergency (ER) | payer OTHER ==
[~2020-05-10] VITALS: Ht 170.2 cm; Wt 77.1 kg
[~2020-05-10] MED LIST: ACETAMINOPHEN-1 EAC1 ORAL; HYDROXYCHLOROQ200 M1 PO; LEVOTHYROXINE125 MCG ORAL; MELOXICAM15 MG PO; Omnipaque-300 100ml vial INJ PRN; SYNTHROID112 MCG ORAL; ZOLOFT25 MG ORAL
[2020-05-10 15:04] VITALS: BP 96/72
--- NOTE | 2020-05-10 15:14 | NUR ---
ED Nurse Note: Patient from home and walked in due to abdominal pain with nausea x 3 weeks. Reports she started to hve bright red blood in her stool in small amounts today. patient c/o dizziness. History of appendectomy on 04/19/20. AAO x4, ambulatory with non labored breathing.
--- NOTE | 2020-05-10 15:31 | Emergency Room Report ---
History of Present Illness General Chief Complaint: Gastrointestinal Bleed Source: Patient Present Illness HPI Disclaimer: Please note that this report is being documented using [employer] technology. This can lead to erroneous entry secondary to incorrect interpretation by the dictating instrument. HPI: 25-year-old female history of thyroiditis, rheumatoid arthritis presents for abdominal pain. Patient had an appendectomy here approximately 3 weeks ago. Since that time she has had intermittent nausea, no vomiting, normal stools besides today where she noted some blood in her stool. She states her abdominal pain is intermittent worse with eating. She denies any abdominal pain at this time. No fevers. No urinary complaints. No urinary frequency. She is followed by gastroenterology and was recently prescribed hyocyamine Allergies: Coded Allergies: No Known Allergies (Unverified , 04/19/20) COVID-19 Screening Contact w/high risk pt: No Experienced COVID-19 symptoms?: No COVID-19 Testing performed [employer]: No Patient History Last Menstrual Period: 04/22/20 Now: No Reviewed Nursing Documentation: PMH: Agreed; PSxH: Agreed Nursing Documentation-PMH Past Medical History: No Stated History Hx Gastrointestinal Problems: Yes - appendectomy Review of Systems All Other Systems: negative except mentioned in HPI Physical Exam Vital Signs Date Time Temp Pulse Resp B/P (MAP) Pulse Ox O2 Delivery O2 Flow Rate FiO2 05/10/20 15:04 98.4 65 19 96/72 (80) 95 Room Air Sp02 EP Interpretation: reviewed, normal General Appearance: well appearing, no apparent distress Head: normocephalic, atraumatic Eyes: bilateral eye PERRL, bilateral eye EOMI ENT: hearing grossly normal, moist mucus membranes Neck: full range of motion, supple Respiratory: lungs clear, normal breath sounds, no rhonchi, no respiratory distress, no retraction, no wheezing Cardiovascular #1: normal peripheral pulses, regular rate, rhythm, no murmur Gastrointestinal: non tender, soft, non-distended, no guarding, other - Incision sites appear well-healing Rectal: normal rectal tone, heme positive stool, other - No bright red blood per rectum, Neurologic: alert, oriented x3, no focal defects Skin: normal color, warm/dry Medical Decision Making Diagnostic Impression: Primary Impression: Rectal bleeding ER Course MDM: Differential diagnosis included but not limited to hemorrhoid, rectal fissure, diverticulosis, postoperative pain, did consider postoperative infection or other etiologies as well Clinical course-patient had no abdominal pain during my exam abdomen was nontender. Surgical sites appear to be healing well. Laboratory studies not demonstrate any leukocytosis evidence of anemia. Electrolytes within normal limits. CT scan of the abdomen pelvis did not show any acute inflammatory pathology. Patient's rectal exam was Hemoccult positive but otherwise brown stool was noted. She is currently followed by GI and they are discussing scheduling a colonoscopy. At this time with stable vital signs I feel patient can be discharged home with close follow-up with her accounts receivable bookkeeper. She was also comfortable with this plan. Return precautions were given. Labs - Laboratory Tests Test 05/10/20 15:40 White Blood Count 5.1 K/UL (4.8-10.8) Red Blood Count 4.65 M/UL (4.20-5.40) Hemoglobin 13.9 G/DL (12.0-16.0) Hematocrit 41.9 % (37.0-47.0) Mean Corpuscular Volume 90 FL (80-99) Mean Corpuscular Hemoglobin 29.8 PG (27.0-31.0) Mean Corpuscular Hemoglobin Concent 33.0 G/DL (32.0-36.0) Red Cell Distribution Width 12.6 % (11.6-14.8) Platelet Count 213 K/UL (150-450) Mean Platelet Volume 8.8 FL (6.5-10.1) Neutrophils (%) (Auto) 54.3 % (45.0-75.0) Lymphocytes (%) (Auto) 34.2 % (20.0-45.0) Monocytes (%) (Auto) 8.8 % (1.0-10.0) Eosinophils (%) (Auto) 1.1 % (0.0-3.0) Basophils (%) (Auto) 1.6 % (0.0-2.0) Prothrombin Time 10.5 SEC (9.30-11.50) Prothrombin Time INR 0.9 (0.9-1.1) Activated Partial Thromboplast Time 26 SEC (23-33) Urine Color Pale yellow Urine Appearance Slightly cloudy Urine pH 7.0 (4.5-8.0) Urine Specific [place] 1.010 (1.005-1.035) Urine Protein Negative (NEGATIVE) Urine Glucose (UA) Negative (NEGATIVE) Urine Ketones Negative (NEGATIVE) Urine Blood Negative (NEGATIVE) Urine Nitrite Negative (NEGATIVE) Urine Bilirubin Negative (NEGATIVE) Urine Urobilinogen Normal MG/DL (0.0-1.0) Urine Leukocyte Esterase 1+ (NEGATIVE) H Urine RBC 0 /HPF (0 - 2) Urine WBC 5-10 /HPF (0 - 2) H Urine Squamous Epithelial Cells Moderate /LPF (NONE/OCC) H Urine Bacteria Few /HPF (NONE) Urine HCG, Qualitative Negative (NEGATIVE) Sodium Level 141 MMOL/L (136-145) Potassium Level 4.0 MMOL/L (3.5-5.1) Chloride Level 105 MMOL/L (98-107) Carbon Dioxide Level 29 MMOL/L (21-32) Anion Gap 8 mmol/L (5-15) Blood Urea Nitrogen 17 mg/dL (7-18) Creatinine 1.0 MG/DL (0.55-1.30) Estimated Glomerular Filtration Rate > 60 mL/min (>60) Glucose Level 83 MG/DL (74-106) Calcium Level 8.2 MG/DL (8.5-10.1) L Total Bilirubin 0.4 MG/DL (0.2-1.0) Aspartate Amino Transferase (AST) 18 U/L (15-37) Alanine Aminotransferase (ALT) 19 U/L (12-78) Alkaline Phosphatase 108 U/L (46-116) Total Protein 7.8 G/DL (6.4-8.2) Albumin 4.0 G/DL (3.4-5.0) Globulin 3.8 g/dL Albumin/Globulin Ratio 1.1 (1.0-2.7) Lipase 115 U/L (73-393) On reevaluation: Patient in no acute distress and nontoxic-appearing Plan-discharge with close follow-up with her accounts receivable bookkeeper. Last Vital Signs Date Time Temp Pulse Resp B/P (MAP) Pulse Ox O2 Delivery O2 Flow Rate FiO2 05/10/20 15:04 98.4 65 19 96/72 (80) 95 Room Air Status: improved Disposition: HOME, SELF-CARE Condition: Stable Antoine Collins M.D. May 10, 2020 15:31
--- NOTE | 2020-05-10 15:47 | NUR ---
ED Nurse Note: Collected blood and urine then sent to lab.
[2020-05-10 16:01] LABS: BASOPHILS % (AUTO) 1.6 % (0.0-2.0); EOSINOPHILS % (AUTO) 1.1 % (0.0-3.0); HEMATOCRIT 41.9 % (37.0-47.0); HEMOGLOBIN 13.9 G/DL (12.0-16.0); LYMPHOCYTES % (AUTO) 34.2 % (20.0-45.0); MEAN CORPUSCULAR VOLUME 90 FL (80-99); MONOCYTES % (AUTO) 8.8 % (1.0-10.0); NEUTROPHILS % (AUTO) 54.3 % (45.0-75.0); PLATELET COUNT 213 K/UL (150-450); RED BLOOD COUNT 4.65 M/UL (4.20-5.40); RED CELL DISTRIBUTION WIDTH 12.6 % (11.6-14.8); WHITE BLOOD COUNT 5.1 K/UL (4.8-10.8)
[2020-05-10 16:04] LABS: ANION GAP 8 mmol/L (5-15); BLOOD UREA NITROGEN 17 mg/dL (7-18); CALCIUM 8.2 MG/DL (8.5-10.1); CARBON DIOXIDE 29 MMOL/L (21-32); CHLORIDE 105 MMOL/L (98-107); SODIUM 141 MMOL/L (136-145)
[2020-05-10 16:09] LABS: ALANINE AMINOTRANSFERASE 19 U/L (12-78); ALBUMIN/GLOBULIN RATIO 1.1 (1.0-2.7); ALKALINE PHOSPHATASE 108 U/L (46-116); ASPARTATE AMINO TRANSFERASE 18 U/L (15-37); BILIRUBIN,TOTAL 0.4 MG/DL (0.2-1.0)
[2020-05-10 16:10] LABS: INR 0.9 (0.9-1.1)
[2020-05-10 16:14] LABS: APPEARANCE,URINE SLIGHTLY CLOUDY; BILIRUBIN, URINE NEGATIVE (NEGATIVE); COLOR,URINE PALE YELLOW; GLUCOSE, URINE (UA) NEGATIVE (NEGATIVE); KETONES,URINE NEGATIVE (NEGATIVE); LEUKOCYTE ESTERASE ,URINE 1+ (NEGATIVE); NITRITE,URINE NEGATIVE (NEGATIVE); PROTEIN,URINE NEGATIVE (NEGATIVE); UROBILINOGEN,URINE NORMAL MG/DL (0.0-1.0)
--- NOTE | 2020-05-10 17:00 | NUR ---
ED Nurse Note: Dr Collins at the bed side for rectal exam. Noted very scanty blood from rectum.
[2020-05-10 17:02] VITALS: BP 108/82
--- NOTE | 2020-05-10 17:12 | Diagnostic Imaging Report ---
EXAM: CT Abdomen and Pelvis With Intravenous Contrast CLINICAL HISTORY: ABD PAIN TECHNIQUE: Axial computed tomography images of the abdomen and pelvis with intravenous contrast. CTDI is 7.2 mGy and DLP is 351 mGy-cm. One or more of the following dose reduction techniques were used: automated exposure control, adjustment of the mA and/or kV according to patient size, use of iterative reconstruction technique. COMPARISON: None. FINDINGS: Lung bases: Unremarkable. No mass. No consolidation. ABDOMEN: Liver: Unremarkable. No mass. Gallbladder and bile ducts: Unremarkable. No calcified stones. No ductal dilation. Pancreas: Unremarkable. No mass. No ductal dilation. Spleen: Unremarkable. No splenomegaly. Adrenals: Unremarkable. No mass. Kidneys and ureters: Unremarkable. No solid mass. No hydronephrosis. Stomach and bowel: Unremarkable. No obstruction. No mucosal thickening. PELVIS: Appendix: Prior appendectomy. Bladder: Unremarkable. No mass. Reproductive: Unremarkable as visualized. ABDOMEN and PELVIS: Intraperitoneal space: Unremarkable. No free air. No significant fluid collection. Bones/joints: No acute fracture. No dislocation. Soft tissues: Small fat-containing hernia likely within prior laparoscopy port along the left anterior lower abdominal wall. Vasculature: Unremarkable. No abdominal aortic aneurysm. Lymph nodes: Unremarkable. No enlarged lymph nodes. IMPRESSION: Small fat-containing hernia like within prior laparoscopy port of the left anterior abdominal wall. Otherwise, no acute abnormality of the abdomen and pelvis.
[2020-05-10 17:35] VITALS: BP 112/70
--- NOTE | 2020-05-10 17:35 | NUR ---
ER DISCHARGE NOTE: Patient is cleared to be discharged per ERMD, pt is aox4, on room air, with stable vital signs. pt was given dc instructions, pt was able to verbalize understanding, pt id band and iv site removed without complications. pt is able to ambulate with steady gait. pt took all belongings.
== END | disposition home or self-care (01) ==
LOC: EMR 17:56
DX: K62.5 Hemorrhage of anus and rectum (principal); Z90.49 Acquired absence of other specified parts of digestive tract
CPT/HCPCS: 36415; 74177; 80053; 81003; 81025; 83690; 85025; 85610; 85730; 86850; 86900; 86901; 96360; 99284; Q9965